=== PATIENT | male | born 1940 | race Caucasian/White ===

== ENCOUNTER 2018-03-09 12:52 | Inpatient (IN) | payer MEDICARE ==
--- NOTE | 2018-03-09 14:52 | ED ---
General Adult HPI - General Chief complaint: Abdominal Pain Stated complaint: Abdominal pain Time Seen by Provider: 03/09/18 14:29 Source: patient, family, RN notes reviewed Mode of arrival: ambulatory Limitations: no limitations - History of Present Illness Initial comments: Patient is a pleasant 77-year-old male presenting to the emergency Department with complaints of abdominal discomfort. Patient saw Dr. Sprague prior to arrival. Dr. Sprague was concern for possible abdominal mass and recommended patient come for computed tomography scan. Patient does admit to having some discomfort of his abdomen for the past week or 2. Patient does feel somewhat constipated. Patient has some chronic urinary hesitancy however this is unchanged. No fevers. Mild nausea. No vomiting. - Related Data Home Medications Medication Instructions Recorded Confirmed No Known Home Medications 03/09/18 03/09/18 Allergies Allergy/AdvReac Type Severity Reaction Status Date / Time No Known Allergies Allergy Verified 03/09/18 14:50 Review of Systems ROS Statement: Those systems with pertinent positive or pertinent negative responses have been documented in the HPI. ROS Other: All systems not noted in ROS Statement are negative. Constitutional: Denies: fever Eyes: Denies: eye pain ENT: Denies: ear pain Respiratory: Denies: cough, dyspnea Cardiovascular: Denies: chest pain Endocrine: Denies: fatigue Gastrointestinal: Reports: abdominal pain, nausea, constipation. Denies: vomiting Genitourinary: Denies: dysuria Musculoskeletal: Denies: back pain Skin: Denies: rash Neurological: Reports: headache (Patient did have a headache behind his left eye last night that has resolved. No discomfort at this time. No visual change.). Denies: weakness Past Medical History Past Medical History: No Reported History History of Any Multi-Drug Resistant Organisms: None Reported Past Surgical History: Hernia Repair Past Psychological History: No Psychological Hx Reported Smoking Status: Never smoker Past Alcohol Use History: Occasional Past Drug Use History: None Reported General Exam Limitations: no limitations General appearance: alert, in no apparent distress Head exam: Present: atraumatic, other (No tenderness over the temporal artery) Eye exam: Present: normal appearance, PERRL, EOMI. Absent: conjunctival injection, nystagmus, periorbital swelling, periorbital tenderness Expanded Eyelids: Normal Inspection: Bilateral Pupils: Regular, Round: Bilateral, Reactive: Bilateral Sclera/Conjunctival: Normal Inspection: Bilateral ENT exam: Present: normal oropharynx Neck exam: Present: normal inspection Respiratory exam: Present: normal lung sounds bilaterally Cardiovascular Exam: Present: regular rate, normal rhythm Expanded Peripheral pulses: 2+: Posterior Tibialis (R), Posterior Tibialis (L) GI/Abdominal exam: Present: soft, distended (Umbilical region with moderate sized isolated area of distention/mass that is nonpulsatile and tender with deep palpation only. No obvious umbilical hernia.), tenderness, normal bowel sounds. Absent: guarding, rebound, rigid, pulsatile mass Extremities exam: Present: normal inspection Neurological exam: Present: alert Psychiatric exam: Present: normal affect, normal mood Skin exam: Present: normal color Course Vital Signs 03/09/18 13:07 Temperature 97.8 F Pulse Rate 94 Respiratory 18 Rate Blood Pressure 205/106 O2 Sat by Pulse 97 Oximetry Medical Decision Making - Medical Decision Making Patient reevaluated. Patient and family updated. Case was discussed in detail with Dr. ye, covering for Dr. Stern, who admits for Dr. Sprague. - Lab Data Result diagrams: 03/09/18 14:57 03/09/18 14:57 Lab Results 03/09/18 03/09/18 03/09/18 Range/Units 14:50 14:57 14:57 WBC 8.9 (3.8-10.6) k/uL RBC 4.54 (4.30-5.90) m/uL Hgb 13.1 (13.0-17.5) gm/dL Hct 39.4 (39.0-53.0) % MCV 86.7 (80.0-100.0) fL MCH 28.8 (25.0-35.0) pg MCHC 33.2 (31.0-37.0) g/dL RDW 12.5 (11.5-15.5) % Plt Count 293 (150-450) k/uL Neutrophils % 75 % Lymphocytes % 16 % Monocytes % 5 % Eosinophils % 2 % Basophils % 0 % Neutrophils # 6.6 (1.3-7.7) k/uL Lymphocytes # 1.5 (1.0-4.8) k/uL Monocytes # 0.5 (0-1.0) k/uL Eosinophils # 0.2 (0-0.7) k/uL Basophils # 0.0 (0-0.2) k/uL PT (9.0-12.0) sec INR (<1.2) APTT (22.0-30.0) sec Sodium 143 (137-145) mmol/L Potassium 4.4 (3.5-5.1) mmol/L Chloride 111 H (98-107) mmol/L Carbon Dioxide 20 L (22-30) mmol/L Anion Gap 12 mmol/L BUN 57 H (9-20) mg/dL Creatinine 5.92 H (0.66-1.25) mg/dL Est GFR (CKD-EPI)AfAm 10 (>60 ml/min/1.73 sqM) Est GFR (CKD-EPI)NonAf 8 (>60 ml/min/1.73 sqM) Glucose 106 H (74-99) mg/dL Calcium 9.7 (8.4-10.2) mg/dL Total Bilirubin 0.8 (0.2-1.3) mg/dL AST 20 (17-59) U/L ALT 33 (21-72) U/L Alkaline Phosphatase 114 (38-126) U/L Total Protein 7.3 (6.3-8.2) g/dL Albumin 4.3 (3.5-5.0) g/dL Amylase 71 (30-110) U/L Lipase 72 (23-300) U/L Urine Color Light Yellow Urine Appearance Clear (Clear) Urine pH 6.0 (5.0-8.0) Ur Specific [place] 1.006 (1.001-1.035) Urine Protein Negative (Negative) Urine Glucose (UA) Negative (Negative) Urine Ketones Negative (Negative) Urine Blood Negative (Negative) Urine Nitrite Negative (Negative) Urine Bilirubin Negative (Negative) Urine Urobilinogen <2.0 (<2.0) mg/dL Ur Leukocyte Esterase Negative (Negative) 03/09/18 Range/Units 14:57 WBC (3.8-10.6) k/uL RBC (4.30-5.90) m/uL Hgb (13.0-17.5) gm/dL Hct (39.0-53.0) % MCV (80.0-100.0) fL MCH (25.0-35.0) pg MCHC (31.0-37.0) g/dL RDW (11.5-15.5) % Plt Count (150-450) k/uL Neutrophils % % Lymphocytes % % Monocytes % % Eosinophils % % Basophils % % Neutrophils # (1.3-7.7) k/uL Lymphocytes # (1.0-4.8) k/uL Monocytes # (0-1.0) k/uL Eosinophils # (0-0.7) k/uL Basophils # (0-0.2) k/uL PT 10.1 (9.0-12.0) sec INR 0.9 (<1.2) APTT 25.5 (22.0-30.0) sec Sodium (137-145) mmol/L Potassium (3.5-5.1) mmol/L Chloride (98-107) mmol/L Carbon Dioxide (22-30) mmol/L Anion Gap mmol/L BUN (9-20) mg/dL Creatinine (0.66-1.25) mg/dL Est GFR (CKD-EPI)AfAm (>60 ml/min/1.73 sqM) Est GFR (CKD-EPI)NonAf (>60 ml/min/1.73 sqM) Glucose (74-99) mg/dL Calcium (8.4-10.2) mg/dL Total Bilirubin (0.2-1.3) mg/dL AST (17-59) U/L ALT (21-72) U/L Alkaline Phosphatase (38-126) U/L Total Protein (6.3-8.2) g/dL Albumin (3.5-5.0) g/dL Amylase (30-110) U/L Lipase (23-300) U/L Urine Color Urine Appearance (Clear) Urine pH (5.0-8.0) Ur Specific [place] (1.001-1.035) Urine Protein (Negative) Urine Glucose (UA) (Negative) Urine Ketones (Negative) Urine Blood (Negative) Urine Nitrite (Negative) Urine Bilirubin (Negative) Urine Urobilinogen (<2.0) mg/dL Ur Leukocyte Esterase (Negative) - Radiology Data Radiology results: report reviewed (Computed tomography scan shows distended bladder with enlarged prostate and pelvic and retroperitoneal lymphadenopathy.) Disposition Clinical Impression: Acute renal failure (ARF) Disposition: ADMITTED IP TO THIS [facility] Is patient prescribed a controlled substance at d/c from ED?: No Referrals: Celestine,Joe, MD [Primary Care Provider] - 1-2 days Decision Time: 17:34
[2018-03-09 15:10] LABS: Basophils % (A) 0 %; Eosinophils # (A) 0.2 k/uL (0-0.7); Eosinophils % (A) 2 %; HCT 39.4 % (39.0-53.0); HGB 13.1 gm/dL (13.0-17.5); Lymphocytes # (A) 1.5 k/uL (1.0-4.8); Lymphocytes % (A) 16 %; MCH 28.8 pg (25.0-35.0); MCHC 33.2 g/dL (31.0-37.0); MCV 86.7 fL (80.0-100.0); Mean Platelet Volume 6.9; Monocytes # (A) 0.5 k/uL (0-1.0); Monocytes % (A) 5 %; Neutrophils # (A) 6.6 k/uL (1.3-7.7); Neutrophils % (A) 75 %; Platelet Count 293 k/uL (150-450); RBC 4.54 m/uL (4.30-5.90); RDW 12.5 % (11.5-15.5); WBC 8.9 k/uL (3.8-10.6)
[2018-03-09 15:12] LABS: Appearance,Urine Clear (Clear); Bilirubin,Urine Negative (Negative); Blood,Urine Negative (Negative); Color,Urine Light Yellow; Glucose,Urine (UA) Negative (Negative); Ketones,Urine Negative (Negative); Leukocyte Esterase,Urine Negative (Negative); Nitrite,Urine Negative (Negative); Protein,Urine Negative (Negative); Specific Gravity,Urine 1.006 (1.001-1.035); Urobilinogen,Urine <2.0 mg/dL (<2.0)
[2018-03-09 15:18] LABS: Albumin 4.3 g/dL (3.5-5.0); Calcium 9.7 mg/dL (8.4-10.2); Potassium 4.4 mmol/L (3.5-5.1); Total Bilirubin 0.8 mg/dL (0.2-1.3); Total Protein 7.3 g/dL (6.3-8.2)
[2018-03-09 15:20] LABS: INR 0.9 (<1.2); Partial Thromboplastin Time 25.5 sec (22.0-30.0); Prothrombin Time 10.1 sec (9.0-12.0)
--- NOTE | 2018-03-09 16:58 | CT ---
EXAMINATION TYPE: CT abdomen pelvis wo con DATE OF EXAM: 03/09/2018 COMPARISON: None HISTORY: Abdominal pain CT DLP: 482.7 mGycm Automated exposure control for dose reduction was used. TECHNIQUE: Helical acquisition of images was performed from the lung bases through the pelvis. FINDINGS: There is some coarsening of interstitial markings in the lower lobes. There is subsegmental atelectas is left lower lobe. There is no pleural effusion. Heart size is normal. Stomach appears normal. Liver shows no focal defect. Gallbladder appears normal. There is no evidence of a splenic mass. There is no evidence of pancreatic mass. Bile ducts are not dilated. There is no adrenal mass. There is moderate bilateral hydronephrosis and hydroureter. Urinary bladder is dilated. The prostate is enlarged and measures 6.5 cm. Urinary bladder measures 20 cm in length. There is no inguinal hernia. There is no free fluid in the pelvis. I see no evidence of a bowel obstr uction. There is no intestinal wall thickening. There are no dilated loops. There is no evidence of a ppendicitis. There is a 12 mm calcification posterior right kidney. I see no obstructing calculus. Th ere are multiple enlarged retroperitoneal lymph nodes. These measure up to 2 cm. I see no mesenteric adenopathy. There are enlarged pelvic lymph nodes that measure up to 1.5 cm. I see no bony destructive process. Bony pelvis is intact. Lumbar vertebra are intact. IMPRESSION: MARKEDLY ENLARGED URINARY BLADDER WITH MARKEDLY ENLARGED PROSTATE. THIS IS CONSISTENT WITH CHRONIC BL ADDER OUTLET OBSTRUCTION. MODERATE BILATERAL HYDRONEPHROSIS AND HYDROURETER. NONOBSTRUCTING RIGHT COOPER AL CALCULUS. PELVIC AND RETROPERITONEAL LYMPHADENOPATHY SUSPICIOUS FOR PROSTATE TUMOR. FOLLOW-UP IS RECOMMENDED.
[2018-03-09] MEDS ORDERED: NALOXONE 0.4 MG/ML 1 ML VIAL IV PRN (17:34)
[2018-03-09] MEDS ORDERED: hydrALAZINE HCL 20 MG/ML 1 ML VIAL IVP STA (18:11)
[2018-03-09] MEDS: SODIUM CHLORIDE 0.9% 1,000 ML IV SCH (21:43)
[2018-03-09] MEDS ORDERED: MORPHINE SULFATE 4 MG/ML SYRINGE IV STA (21:57)
[2018-03-09 22:51] VITALS: BMI 26.6
[2018-03-09] MEDS: hydrALAZINE HCL 20 MG/ML 1 ML VIAL IVP PRN (22:55)
[2018-03-10] MEDS: ACETAMINOPHEN TAB 325 MG TAB PO PRN ×2 (07:17→23:47)
[2018-03-10] MEDS: hydrALAZINE HCL 20 MG/ML 1 ML VIAL IVP PRN (07:18)
[2018-03-10 09:52] LABS: Basophils % (A) 0 %; Eosinophils # (A) 0.1 k/uL (0-0.7); Eosinophils % (A) 1 %; HCT 37.4 % (39.0-53.0); HGB 12.9 gm/dL (13.0-17.5); Lymphocytes # (A) 1.2 k/uL (1.0-4.8); Lymphocytes % (A) 11 %; MCH 29.9 pg (25.0-35.0); MCHC 34.4 g/dL (31.0-37.0); MCV 86.9 fL (80.0-100.0); Mean Platelet Volume 7.1; Monocytes # (A) 0.4 k/uL (0-1.0); Monocytes % (A) 4 %; Neutrophils # (A) 9.1 k/uL (1.3-7.7); Neutrophils % (A) 84 %; Platelet Count 304 k/uL (150-450); RBC 4.31 m/uL (4.30-5.90); RDW 12.7 % (11.5-15.5); WBC 10.9 k/uL (3.8-10.6)
[2018-03-10 10:14] LABS: Calcium 9.6 mg/dL (8.4-10.2)
--- NOTE | 2018-03-10 16:04 | P.GSCN ---
History of Present Illness Consult date: 03/10/18 History of present illness: This is a pleasant 77-year-old gentleman who first several days had been struggling to urinate. [facility] a abdominal mass that they sent him to the hospital for an abdominal CAT scan. He was identified to have urine retention with bilateral hydronephrosis. A catheters placed and 1200 mL of urine was obtained. We are asked see the patient in consultation. The patient was found to be in renal failure with a creatinine of 5.9. The patient has not had a doctor for years. So recent medical history is not obtainable. He states that he has been urinating with some difficulty for some time. He has hasn't urine stream slow urine stream incomplete voiding in frequent urination. There has been a couple episodes of urgency incontinence. There is no family history of prostate problems. Obviously has not had a PSA or prostate exam a long period of time. His abdominal pain and distention was relieved with an indwelling catheter. He feels much better. He has had some post catheter hematuria which is to be expected with decompression of the bladder and/or irritation of the prostate from the catheter. On ultrasound he does have a large prostate. The creatinine has dropped to 2.2 after 24 hours with an indwelling catheter. No PSAs been done Review of Systems All systems: negative - Genitourinary Reports as per HPI Past Medical History Past Medical History: No Reported History History of Any Multi-Drug Resistant Organisms: None Reported Past Surgical History: Hernia Repair Past Psychological History: No Psychological Hx Reported Smoking Status: Never smoker Past Alcohol Use History: Occasional Past Drug Use History: None Reported Medications and Allergies Home Medications Medication Instructions Recorded Confirmed Type No Known Home Medications 03/09/18 03/09/18 History Allergies Allergy/AdvReac Type Severity Reaction Status Date / Time No Known Allergies Allergy Verified 03/09/18 14:50 Surgical - Exam Vital Signs Temp Pulse Resp BP Pulse Ox 97.8 F 94 18 205/106 97 03/09/18 13:07 03/09/18 13:07 03/09/18 13:07 03/09/18 13:07 03/09/18 13:07 - General well developed, no distress - Eyes PERRL - ENT no hearing loss - Neck trachea midline - Respiratory normal expansion, normal respiratory effort - Cardiovascular Rhythm: irregularly irregular - Abdomen Abdomen: soft, non tender, tender - Genitourinary Noncircumcised penis. Indwelling catheter. Light pink urine. Prostate 40-50 g a regular and benign normal penis with no external lesions, testicles present - Rectum Rectum: normal sphincter tone - Integumentary no rash, no growths - Neurologic normal coordination, normal sensation - Musculoskeletal normal posture - Psychiatric oriented to time, oriented to person, oriented to place, speech is normal, memory intact Results - Labs 03/10/18 08:32 03/10/18 08:32 Abnormal Lab Results - Last 24 Hours (Table) 03/10/18 03/10/18 Range/Units 08:32 08:32 WBC 10.9 H (3.8-10.6) k/uL Hgb 12.9 L (13.0-17.5) gm/dL Hct 37.4 L (39.0-53.0) % Neutrophils # 9.1 H (1.3-7.7) k/uL Chloride 109 H (98-107) mmol/L Carbon Dioxide 21 L (22-30) mmol/L BUN 34 H (9-20) mg/dL Creatinine 2.28 H (0.66-1.25) mg/dL Glucose 145 H (74-99) mg/dL Diabetes panel 03/10/18 Range/Units 08:32 Sodium 143 (137-145) mmol/L Potassium 4.0 (3.5-5.1) mmol/L Chloride 109 H (98-107) mmol/L Carbon Dioxide 21 L (22-30) mmol/L BUN 34 H (9-20) mg/dL Creatinine 2.28 H (0.66-1.25) mg/dL Glucose 145 H (74-99) mg/dL Calcium 9.6 (8.4-10.2) mg/dL Calcium panel 03/10/18 Range/Units 08:32 Calcium 9.6 (8.4-10.2) mg/dL Pituitary panel 03/10/18 Range/Units 08:32 Sodium 143 (137-145) mmol/L Potassium 4.0 (3.5-5.1) mmol/L Chloride 109 H (98-107) mmol/L Carbon Dioxide 21 L (22-30) mmol/L BUN 34 H (9-20) mg/dL Creatinine 2.28 H (0.66-1.25) mg/dL Glucose 145 H (74-99) mg/dL Calcium 9.6 (8.4-10.2) mg/dL Adrenal panel 03/10/18 Range/Units 08:32 Sodium 143 (137-145) mmol/L Potassium 4.0 (3.5-5.1) mmol/L Chloride 109 H (98-107) mmol/L Carbon Dioxide 21 L (22-30) mmol/L BUN 34 H (9-20) mg/dL Creatinine 2.28 H (0.66-1.25) mg/dL Glucose 145 H (74-99) mg/dL Calcium 9.6 (8.4-10.2) mg/dL - Imaging CT scan - abdomen: report reviewed, image reviewed CT scan - pelvis: report reviewed, image reviewed Assessment and Plan Assessment: Impression: Acute urine retention. Chronic BPH. Bilateral hydronephrosis with secondary renal insufficiency, acute. Recommendations: Indwelling catheter is appropriate and should remain in place for the short term. I will add tamsulosin for a voiding trial in the near future. He'll need a PSA in the future but I will wait a few days until the irritation from the catheter placement and bladder decompression settle down. I will follow this patient with you
[2018-03-10] MEDS: SODIUM CHLORIDE 0.9% 1,000 ML IV SCH (16:38)
--- NOTE | 2018-03-10 21:18 | P.HPIM ---
History of Present Illness this a pleasant 77 yo M with no significant pmh who presents with acute renal faillure and obstructive uropathy . he went to urgent care because he was complaining from his left eye, physician at urgent care noticed he was complaining from abd discomfort in the lower abd and during his examination he suspected some kind of mass in the lower abd and advised him to come to emergency room , where he found to have distended urinary bladder with CT scan of abdomen showing markedly enlarged urinary bladder and markadly enlarged prostate gland, with moderate bilateral hydronephrosis and hydroureter conley catheter was inserted and pt start feeling better. Review of Systems CONSTITUTIONAL: No fever, no malaise, no fatigue. HEENT: No recent visual problems or hearing problems. Denied any sore throat. CARDIOVASCULAR: No orthopnea, PND, no palpitations, no syncope. PULMONARY: No shortness of breath, no cough, no hemoptysis. GASTROINTESTINAL: No diarrhea, no nausea, no vomiting, no abdominal pain. Normoactive bowel sounds. NEUROLOGICAL: No headaches, no weakness, no numbness. HEMATOLOGICAL: Denies any bleeding or petechiae. GENITOURINARY: Denies any burning micturition, frequency, or urgency. MUSCULOSKELETAL/RHEUMATOLOGICAL: Denies any joint pain, swelling, or any muscle pain. ENDOCRINE: Denies any polyuria or polydipsia. Past Medical History Past Medical History: No Reported History History of Any Multi-Drug Resistant Organisms: None Reported Past Surgical History: Hernia Repair Past Psychological History: No Psychological Hx Reported Smoking Status: Never smoker Past Alcohol Use History: Occasional Past Drug Use History: None Reported Medications and Allergies Home Medications Medication Instructions Recorded Confirmed Type No Known Home Medications 03/09/18 03/09/18 History Allergies Allergy/AdvReac Type Severity Reaction Status Date / Time No Known Allergies Allergy Verified 03/09/18 14:50 Physical Exam Vitals: Vital Signs Temp Pulse Pulse Pulse Resp BP BP 03/10/18 08:58 122/70 03/10/18 07:08 97.8 F 108 H 18 154/84 03/10/18 00:17 98.2 F 107 H 16 139/67 03/10/18 00:00 109 H 160/71 03/09/18 23:06 98.0 F 108 H 93 16 186/94 03/09/18 22:12 98.0 F 97 18 150/90 03/09/18 20:36 102 H 146/90 03/09/18 20:00 155/96 03/09/18 19:50 155/96 03/09/18 19:40 158/92 03/09/18 19:35 97 16 158/92 03/09/18 19:30 177/98 03/09/18 19:20 177/98 03/09/18 19:10 160/125 03/09/18 18:50 180/116 03/09/18 18:40 105 H 17 177/120 03/09/18 18:10 103 H 18 190/118 03/09/18 13:07 97.8 F 94 18 205/106 Pulse Ox 03/10/18 08:58 03/10/18 07:08 93 L 03/10/18 00:17 93 L 03/10/18 00:00 03/09/18 23:06 03/09/18 22:12 97 03/09/18 20:36 97 03/09/18 20:00 94 L 03/09/18 19:50 94 L 03/09/18 19:40 94 L 03/09/18 19:35 97 03/09/18 19:30 95 03/09/18 19:20 97 03/09/18 19:10 95 03/09/18 18:50 96 03/09/18 18:40 95 03/09/18 18:10 93 L 03/09/18 13:07 97 Intake and Output 03/09/18 03/10/18 03/10/18 22:59 06:59 14:59 Intake Total 375 Output Total 2350 1400 Balance -2350 -1025 Intake: Intake, IV Titration 375 Amount Sodium Chloride 0.9% 1, 375 000 ml @ 75 mls/hr IV . [id number] [facility] Rx#:[id number] Output: Urine 2350 1400 Uretheral (Con[place]) 1250 800 Other: Voiding Method Indwelling Catheter Indwelling Catheter Weight 77.111 kg GENERAL: The patient is alert and oriented x3, not in any acute distress. Well developed, well nourished. HEENT: Pupils are round and equally reacting to light. EOMI. No scleral icterus. No conjunctival pallor. Normocephalic, atraumatic. No pharyngeal erythema. No thyromegaly. CARDIOVASCULAR: S1 and S2 present. No murmurs, rubs, or gallops. PULMONARY: Chest is clear to auscultation, no wheezing or crackles. ABDOMEN: Soft, nontender, nondistended, normoactive bowel sounds. No palpable organomegaly. MUSCULOSKELETAL: No joint swelling or deformity. EXTREMITIES: No cyanosis, clubbing, or pedal edema. NEUROLOGICAL: Gross neurological examination did not reveal any focal deficits. SKIN: No rashes. Results CBC & Chem 7: 03/10/18 08:32 03/10/18 08:32 Labs: Abnormal Lab Results - Last 24 Hours (Table) 03/09/18 03/10/18 03/10/18 Range/Units 14:57 08:32 08:32 WBC 10.9 H (3.8-10.6) k/uL Hgb 12.9 L (13.0-17.5) gm/dL Hct 37.4 L (39.0-53.0) % Neutrophils # 9.1 H (1.3-7.7) k/uL Chloride 111 H 109 H (98-107) mmol/L Carbon Dioxide 20 L 21 L (22-30) mmol/L BUN 57 H 34 H (9-20) mg/dL Creatinine 5.92 H 2.28 H (0.66-1.25) mg/dL Glucose 106 H 145 H (74-99) mg/dL Thrombosis Risk Factor Assmnt - Choose All That Apply Any of the Below Risk Factors Present?: No Other Risk Factors: Yes Each Risk Factor Represents 3 Points: Age 75 years or older Other congenital or acquired thrombophilia - If yes, enter type in comment: No Thrombosis Risk Factor Assessment Total Risk Factor Score: 3 Thrombosis Risk Factor Assessment Level: Moderate Risk Assessment and Plan Assessment: acute renal failure acute urinary retention moderate Bilateral hydronephrosis dilated urinary bladder dehydration Plan: this is a pleasant 77 yo M who presents with acute renal failure , c/w iv fluids , nephrology and urology consult Labs and medication were reviewed.. Continue same treatment. Continue with symptomatic treatment. Resume home medication. Monitor lytes and vitals. DVT and GI prophylaxis. Further recommendations of the clinical course of the patient DVT prophylaxis: Subcutaneous heparin GI Prophylaxis: Pepcid PT/OT: Pending Prognosis is guarded
--- NOTE | 2018-03-10 23:22 | CONS ---
CONSULTATION REASON FOR CONSULT: Renal failure. HISTORY OF PRESENT ILLNESS: Patient is a 77-year-old male who was admitted to the hospital with complaints of weakness and abdominal pain. Patient noticed he had been voiding less and had some difficulty in passing urine. The patient states he has not seen a physician for about 30 years and he is currently not on any medications. CT scan was done in the ER, which showed bilateral hydronephrosis and enlarged prostate. There was also a nonobstructive right renal calculus seen. The patient currently has a Marte catheter and he has had good urine output. Total output documented at 3.7 L. Serum creatinine was 5.9 on initial admission. It is now down to 2.28. We do not have any previous labs available for comparison. PAST MEDICAL HISTORY: None. PAST SURGICAL HISTORY: Hernia repairs. SOCIAL HISTORY: Negative for smoking, drug abuse or alcohol abuse. MEDICATIONS: None. REVIEW OF SYSTEMS: As per HPI. Other systems negative. EXAMINATION: Patient is currently comfortable, awake, alert, oriented x3, not in any acute distress. The patient was seen this morning. Blood pressure was 122/70, heart rate of 82 per minute. He is afebrile. Examination of the heart S1, S2. Examination of the lungs bilateral breath sounds are heard. Abdomen is soft, nontender. Examination of lower extremities shows no evidence of edema. SUPERVISOR PLEATING exam is grossly intact. LAB: Show sodium 143, potassium 4.0, chloride 109, BUN 34, serum creatinine 2.28, hemoglobin 12.9 g/dL. UA is completely benign with no evidence of blood or protein. ASSESSMENT: 1. Acute kidney injury secondary to obstructive uropathy with enlarged prostate and bilateral hydronephrosis, currently improving with indwelling Marte catheter placement. Urology has been consulted. 2. Rule out chronic kidney disease. 3. Abdominal pain secondary to urinary bladder distention and urinary obstruction. 4. Enlarged prostate to follow up with Urology as outpatient. PSA will be ordered as well. PLAN: Continue with IV fluids. Repeat labs in a.m. Thank you for this consultation. We will continue to follow the patient with you during his hospitalization. MMODL / IJN: [id number] /
[2018-03-11] MEDS: hydrALAZINE HCL 20 MG/ML 1 ML VIAL IVP PRN (00:09)
[2018-03-11] MEDS: SODIUM CHLORIDE 0.9% 1,000 ML IV SCH ×2 (00:58→18:17)
[2018-03-11 07:40] LABS: Basophils % (A) 0 %; Eosinophils # (A) 0.3 k/uL (0-0.7); Eosinophils % (A) 3 %; HCT 36.9 % (39.0-53.0); HGB 12.4 gm/dL (13.0-17.5); Lymphocytes % (A) 22 %; MCH 29.2 pg (25.0-35.0); MCHC 33.5 g/dL (31.0-37.0); MCV 87.2 fL (80.0-100.0); Mean Platelet Volume 6.8; Monocytes # (A) 0.5 k/uL (0-1.0); Monocytes % (A) 6 %; Neutrophils # (A) 6.2 k/uL (1.3-7.7); Neutrophils % (A) 68 %; Platelet Count 285 k/uL (150-450); RBC 4.23 m/uL (4.30-5.90); RDW 12.9 % (11.5-15.5); WBC 9.2 k/uL (3.8-10.6)
[2018-03-11 07:53] LABS: Calcium 9.1 mg/dL (8.4-10.2); Potassium 3.9 mmol/L (3.5-5.1)
--- NOTE | 2018-03-11 09:03 | P.PN ---
Subjective Progress Note Date: 03/11/18 The patient's creatinine is come down to 1.4 from 5.9. This is consistent with acute renal failure due to urine retention. He'll be started on the Flomax. We 'll pull his catheter as an outpatient and see if the Flomax will be adequate to help him with voiding. If not he may need a TURP in the future. Objective - Vital Signs Vital signs: Vital Signs Temp 98.9 F 03/11/18 07:40 Pulse 87 03/11/18 07:40 Resp 16 03/11/18 07:40 BP 144/80 03/11/18 07:40 Pulse Ox 95 03/11/18 07:40 Intake & Output 03/10/18 03/11/18 03/11/18 18:59 06:59 18:59 Intake Total 600 675 Output Total 1000 Balance -400 675 Intake: Intake, IV Titration 600 675 Amount Sodium Chloride 0.9% 1, 600 675 000 ml @ 75 mls/hr IV . [id number] [facility] Rx#:[id number] Output: Urine 1000 Other: Voiding Method Indwelling Catheter Indwelling Catheter Indwelling Catheter - Labs CBC & Chem 7: 03/11/18 07:07 03/11/18 07:07 Labs: Abnormal Lab Results - Last 24 Hours (Table) 03/10/18 03/10/18 03/11/18 Range/Units 08:32 08:32 07:07 WBC 10.9 H (3.8-10.6) k/uL RBC (4.30-5.90) m/uL Hgb 12.9 L (13.0-17.5) gm/dL Hct 37.4 L (39.0-53.0) % Neutrophils # 9.1 H (1.3-7.7) k/uL Chloride 109 H 112 H (98-107) mmol/L Carbon Dioxide 21 L (22-30) mmol/L BUN 34 H 23 H (9-20) mg/dL Creatinine 2.28 H 1.49 H (0.66-1.25) mg/dL Glucose 145 H (74-99) mg/dL 03/11/18 Range/Units 07:07 WBC (3.8-10.6) k/uL RBC 4.23 L (4.30-5.90) m/uL Hgb 12.4 L (13.0-17.5) gm/dL Hct 36.9 L (39.0-53.0) % Neutrophils # (1.3-7.7) k/uL Chloride (98-107) mmol/L Carbon Dioxide (22-30) mmol/L BUN (9-20) mg/dL Creatinine (0.66-1.25) mg/dL Glucose (74-99) mg/dL
--- NOTE | 2018-03-11 10:47 | P.PN ---
Subjective this a pleasant 77 yo M with no significant pmh who presents with acute renal faillure and obstructive uropathy . he went to urgent care because he was complaining from his left eye, physician at urgent care noticed he was complaining from abd discomfort in the lower abd and during his examination he suspected some kind of mass in the lower abd and advised him to come to emergency room , where he found to have distended urinary bladder with CT scan of abdomen showing markedly enlarged urinary bladder and markadly enlarged prostate gland, with moderate bilateral hydronephrosis and hydroureter conley catheter was inserted and pt start feeling better. 03/11/2018 Patient today's feels better. With no chest pain dyspnea. No abdominal pain. No change in bowel habits. Vitas looks stable. Leukocytosis resolved. And his creatinine is trending down from 2.2 down to 1.49. Neurology follow-up is appreciated, they recommended and possible TURP to be considered in the future. Nephrology Objective - Vital Signs Vital signs: Vital Signs Temp 98.9 F 03/11/18 07:40 Pulse 87 03/11/18 07:40 Resp 16 03/11/18 07:40 BP 144/80 03/11/18 07:40 Pulse Ox 95 03/11/18 07:40 Intake & Output 03/10/18 03/11/18 03/11/18 18:59 06:59 18:59 Intake Total 600 675 Output Total 1000 Balance -400 675 Intake: Intake, IV Titration 600 675 Amount Sodium Chloride 0.9% 1, 600 675 000 ml @ 75 mls/hr IV . [id number] [facility] Rx#:[id number] Output: Urine 1000 Other: Voiding Method Indwelling Catheter Indwelling Catheter Indwelling Catheter - Exam GENERAL: The patient is alert and oriented x3, not in any acute distress. Well developed, well nourished. HEENT: Pupils are round and equally reacting to light. EOMI. No scleral icterus. No conjunctival pallor. Normocephalic, atraumatic. No pharyngeal erythema. No thyromegaly. CARDIOVASCULAR: S1 and S2 present. No murmurs, rubs, or gallops. PULMONARY: Chest is clear to auscultation, no wheezing or crackles. ABDOMEN: Soft, nontender, nondistended, normoactive bowel sounds. No palpable organomegaly. MUSCULOSKELETAL: No joint swelling or deformity. EXTREMITIES: No cyanosis, clubbing, or pedal edema. NEUROLOGICAL: Gross neurological examination did not reveal any focal deficits. SKIN: No rashes. - Labs CBC & Chem 7: 03/11/18 07:07 03/11/18 07:07 Labs: Abnormal Lab Results - Last 24 Hours (Table) 03/11/18 03/11/18 Range/Units 07:07 07:07 RBC 4.23 L (4.30-5.90) m/uL Hgb 12.4 L (13.0-17.5) gm/dL Hct 36.9 L (39.0-53.0) % Chloride 112 H (98-107) mmol/L BUN 23 H (9-20) mg/dL Creatinine 1.49 H (0.66-1.25) mg/dL Assessment and Plan Assessment: acute renal failure acute urinary retention moderate Bilateral hydronephrosis dilated urinary bladder dehydration Plan: this is a pleasant 77 yo M who presents with acute renal failure , c/w iv fluids , nephrology and urology consult Labs and medication were reviewed.. Continue same treatment. Continue with symptomatic treatment. Resume home medication. Monitor lytes and vitals. DVT and GI prophylaxis. Further recommendations of the clinical course of the patient DVT prophylaxis: Subcutaneous heparin GI Prophylaxis: Pepcid PT/OT: Pending Prognosis is guarded
[2018-03-11] MEDS: TAMSULOSIN 0.4 MG CAP.ER.24H PO SCH (18:17)
--- NOTE | 2018-03-11 22:23 | PN ---
PROGRESS NOTE HISTORY: The patient is seen for followup for acute kidney injury which was mainly obstructive uropathy. The patient has a Marte catheter with good urine output. His creatinine is down from 5.9 to 1.49 today. The patient denies any significant complaints. PHYSICAL EXAMINATION: Blood pressure was 144/80, heart rate 87 per minute this morning. Examination of the heart S1, S2. Examination of lungs, bilateral breath sounds are heard. Abdomen is soft, nontender. Exam of lower extremities shows no significant edema. INFORMATION RESOURCES MANAGER exam is grossly intact. LABS: Serum creatinine down to 1.49. Sodium 142, potassium 3.9, BUN 23, hemoglobin 12.4 g/dL. UA is benign. ASSESSMENT: 1. Acute kidney injury, mainly obstructive uropathy with bilateral hydronephrosis on ultrasound, currently with indwelling Marte catheter with significant improvement in renal function. The patient is maintained on Flomax. He will follow up as outpatient with Urology. 2. Abdominal pain secondary to severe urinary retention, currently improved. PLAN: Decrease IV fluids. Possible discharge. The patient could possibly be discharged tomorrow and follow up as outpatient with Urology. MMODL / IJN: [id number] /
[2018-03-12 07:44] LABS: Calcium 8.7 mg/dL (8.4-10.2); Potassium 3.8 mmol/L (3.5-5.1)
[2018-03-12] MEDS: SODIUM CHLORIDE 0.9% 1,000 ML IV SCH (08:35)
[2018-03-12 19:44] VITALS: TEMP 99
[2018-03-12] MEDS: TAMSULOSIN 0.4 MG CAP.ER.24H PO SCH (20:17)
--- NOTE | 2018-03-12 23:54 | PN ---
PROGRESS NOTE HISTORY: Patient is seen for followup for acute kidney injury which was mainly obstructive uropathy. Renal function has improved significantly. Serum creatinine is down to 1.18. The patient has an indwelling Marte catheter. He has had good urine output. PHYSICAL EXAMINATION: This afternoon, blood pressure was 151/82, heart rate 94 per minute. He is afebrile. Examination of the heart S1, S2. Examination of lungs, bilateral breath sounds are heard. Abdomen is soft, nontender. Examination of lower extremity shows no evidence of edema. SECOND CHEF exam is grossly intact. LABS: Sodium 141, potassium 3.8, BUN 17, serum creatinine 1.18. ASSESSMENT: 1. Acute kidney injury, obstructive uropathy associated with enlarged prostate and bilateral hydronephrosis, currently significantly improved, with serum creatinine down from 5.9 to 1.18 mg/dL now. Continue with indwelling Marte catheter and follow up as outpatient with Urology. 2. Benign prostatic hypertrophy, maintained on Flomax. Follow up with Urology. PLAN: Discontinue IV fluids. Encourage increased oral intake. The patient is stable for discharge from Nephrology standpoint. MMODL / IJN: [id number] /
[2018-03-13 00:25] LABS: Glucose,Whole Blood 135 mg/dL (75-99)
--- NOTE | 2018-03-13 00:31 | CT ---
EXAMINATION TYPE: CODE STROKE: CT brain wo contr DATE OF EXAM: 03/13/2018 COMPARISON: None HISTORY: r/o stroke CT DLP: 2300 mGycm Automated exposure control for dose reduction was used. FINDINGS: Exam limited slightly by motion. There is cerebral cortical atrophy. There is no mass effect nor midl ine shift. There is no sign of intracranial hemorrhage. Calvarium is intact. IMPRESSION: Cerebral atrophy. No acute intracranial abnormality. Limited exam.
--- NOTE | 2018-03-13 00:44 | CT ---
EXAMINATION TYPE: CT angio head neck DATE OF EXAM: 03/13/2018 HISTORY: stroke COMPARISON: None CT DLP: 492.3 mGycm. Automated Exposure Control for Dose Reduction was Utilized. TECHNIQUE: CTA scan of the neck is performed with IV Contrast, patient injected with 65 mL of Isovue 370, axial images are obtained, coronal and sagittal reformatted images are reviewed. Three-D recons tructed images are created on an independent workstation and reviewed. FINDINGS: There is normal branching pattern of the great vessels on the aortic arch. There is bilateral patency of the subclavian arteries. There is arterial flow in both vertebral arteries. Left vertebral artery slightly larger than the right.. There is arterial flow in the common internal and external carotid arteries bilaterally. There is wide patency of the carotid artery bifurcations. There is minimal plaq ue at the left carotid artery bifurcation. There is no evidence of vertebral or carotid artery aneurysm or dissection. There is arterial flow in both internal carotid arteries at the skull base. Is arterial flow in the v ertebrobasilar artery system. There is arterial flow in the anterior middle and posterior cerebral arteries. There is abrupt termin ation of the proximal right middle cerebral artery. There is no mass effect. There is no evidence of aneurysm or neovascularity. I see no evidence of intracranial arterial stenosis. There is normal contrast opacification of the venous sinuses. IMPRESSION: Negative CT angiogram of the neck. No evidence of stenosis or dissection. 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
[2018-03-13 00:49] LABS: Basophils % (A) 0 %; Eosinophils # (A) 0.3 k/uL (0-0.7); Eosinophils % (A) 3 %; HGB 12.9 gm/dL (13.0-17.5); Lymphocytes # (A) 1.4 k/uL (1.0-4.8); Lymphocytes % (A) 13 %; MCH 29.7 pg (25.0-35.0); MCV 87.3 fL (80.0-100.0); Monocytes # (A) 0.4 k/uL (0-1.0); Monocytes % (A) 4 %; Neutrophils % (A) 80 %; Platelet Count 276 k/uL (150-450); RBC 4.36 m/uL (4.30-5.90); RDW 12.7 % (11.5-15.5); WBC 11.3 k/uL (3.8-10.6)
[2018-03-13] MEDS ORDERED: tPA (Alteplase) PER PHARMACY 1 EACH MISC MISCELLANE PRN (00:49)
[2018-03-13] MEDS ORDERED: ALTEPLASE 63 MG in EMPTY BAG 1 BAG IV STA (00:55)
[2018-03-13] MEDS ORDERED: ALTEPLASE BOLUS 7 MG in EMPTY SYRINGE 1 SYR IV STA (00:55)
[2018-03-13 01:09] LABS: Partial Thromboplastin Time 26.1 sec (22.0-30.0); Prothrombin Time 10.3 sec (9.0-12.0)
[2018-03-13] MEDS ORDERED: LABETALOL 5 MG/ML VIAL MDV IVP SCH (01:15)
[2018-03-13 01:17] VITALS: RESP 18
[2018-03-13 01:17] LABS: Albumin 3.7 g/dL (3.5-5.0); Potassium 3.7 mmol/L (3.5-5.1); Total Bilirubin 0.6 mg/dL (0.2-1.3); Total Protein 6.6 g/dL (6.3-8.2)
[2018-03-13 01:21] VITALS: BP 157/107; PULSE 110
--- NOTE | 2018-03-14 08:05 | PN ---
PROGRESS NOTE DATE OF SERVICE: 03/12/2018 PRESENTING COMPLAINT: Urinary retention. INTERVAL HISTORY: This patient was seen by me on March 12, 2018. The patient presented with acute renal failure from BPH, has a Marte catheter. Creatinine is coming down. I saw the patient in late afternoon. Overall feeling better. The patient is concerned about having a bowel movement and wanted to go home the following day and I said okay. His is at the bedside. Marte catheter has to remain in as per Urology. REVIEW OF SYSTEMS: Done for constitutional, cardiovascular, GI, pulmonary; relevant findings as above. Patient has otherwise been tolerating a diet. Has been out of bed. CURRENT MEDICATIONS: Reviewed. EXAMINATION: VITAL SIGNS: Temp 97.6, pulse 94, respiration 17, blood pressure 120/82, pulse ox 93 percent on room air. GENERAL APPEARANCE: Lying in bed comfortable. EYES: Pupils equal, conjunctivae normal. NECK: JVD not raised. Mass not palpable. RESPIRATORY: Effort, lungs fair entry. CARDIOVASCULAR: 1st and 2nd sounds, no edema. ABDOMEN: Soft, nontender. Liver and spleen not palpable. Marte catheter in place. PSYCHIATRY: Alert and oriented x3. Mood and affect normal. INVESTIGATIONS: Potassium 3.8, BUN 17, creatinine 1.18. ASSESSMENT: 1. Acute renal failure prerenal secondary to obstructive uropathy from benign prostatic hypertrophy. 2. Severe benign prostatic hypertrophy causing urinary outflow obstruction. Now Marte catheter in place. 3. Normocytic anemia cause undetermined. 4. Constipation could be from urinary retention. PLAN: Told the patient and the . Discussed that we will keep the patient overnight. Let him go tomorrow. Hopefully, patient will have a bowel movement. If not, the patient will need an enema. MMODL / IJN: [id number] /
--- NOTE | 2018-03-15 00:05 | DS ---
DISCHARGE SUMMARY DATE OF ADMISSION: 03/09/2018 DATE OF DISCHARGE: 03/13/2018 FINAL DIAGNOSES: 1. Acute renal failure, prerenal secondary to obstructive uropathy from benign prostatic hypertrophy. 2. Severe benign prostatic hypertrophy causing urinary outflow obstruction, Marte catheter in place. 3. Normocytic anemia, cause undetermined. 4. Constipation probably from urinary retention. 5. 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 HOSPITAL COURSE: This patient presented with acute renal failure and obstructive uropathy. He was having abdominal discomfort. The patient is found to have a distended urinary bladder and Marte catheter was placed. CT scan did confirm a markedly enlarged prostate with bilateral hydronephrosis and hydroureter. Marte catheter was placed. The patient's creatinine was 5.92. The creatinine did come down to 1.09. Marte catheter was also placed and was to be kept in by Dr. Bunn. I saw the patient on the evening of the around midnight. The nurse found the patient's left side to be flaccid, facial asymmetry, garbled speech. Code stroke was called out. CT scan of the brain was unremarkable without contrast. 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 The patient was transferred urgently to [facility] and was picked up at 1:30 am by [facility]. DISPOSITION: [facility]. Transferred by [facility]. CONSULTATIONS: Dr. Coyne from Nephrology and Dr. Bunn from Urology. MMODL / IJN: [id number] /
== END 2018-03-13 01:30 | disposition short-term general hospital (02) | DRG 682 ==
LOC: EC 12:52 → 4SSUR 22:10
PROVIDERS: ADMIT Hospitalist; ATTEND Hospitalist
DX: N17.9 Acute kidney failure, unspecified (principal); I63.311 Cerebral infarction due to thrombosis of right middle cerebral artery; N13.8 Other obstructive and reflux uropathy; D64.9 Anemia, unspecified; D72.829 Elevated white blood cell count, unspecified; N13.2 Hydronephrosis with renal and ureteral calculous obstruction; N40.1 Benign prostatic hyperplasia with lower urinary tract symptoms; K59.00 Constipation, unspecified; E86.0 Dehydration; N39.41 Urge incontinence; R33.8 Other retention of urine; R47.89 Other speech disturbances; R29.810 Facial weakness
CPT/HCPCS: 36415; 51702; 70450; 70496; 70498; 74176; 80048; 80053; 81003; 82150; 83036; 83690; 84484; 85025; 85610; 85730; 93005; 96374; 96375; 99285

== ENCOUNTER → 2018-05-26 | Outpatient (CLI) | payer MEDICARE ==
[2018-05-26 16:41] LABS: Basophils % (A) 0 %; Eosinophils # (A) 0.3 k/uL (0-0.7); Eosinophils % (A) 4 %; HCT 43.5 % (39.0-53.0); HGB 14.5 gm/dL (13.0-17.5); Lymphocytes # (A) 1.9 k/uL (1.0-4.8); Lymphocytes % (A) 22 %; MCH 30.2 pg (25.0-35.0); MCHC 33.3 g/dL (31.0-37.0); MCV 90.8 fL (80.0-100.0); Mean Platelet Volume 7.2; Monocytes # (A) 0.4 k/uL (0-1.0); Monocytes % (A) 4 %; Neutrophils # (A) 5.8 k/uL (1.3-7.7); Neutrophils % (A) 68 %; Platelet Count 281 k/uL (150-450); RBC 4.79 m/uL (4.30-5.90); RDW 13.6 % (11.5-15.5); WBC 8.5 k/uL (3.8-10.6)
[2018-05-26 16:47] LABS: Appearance,Urine Cloudy (Clear); Bacteria,Urine Rare /hpf; Bilirubin,Urine Negative (Negative); Blood,Urine Moderate (Negative); Budding Yeast,Urine Rare /hpf; Color,Urine Yellow; Glucose,Urine (UA) Negative (Negative); Ketones,Urine Negative (Negative); Leukocyte Esterase,Urine Large (Negative); Mucus,Urine Many /hpf; Nitrite,Urine Positive (Negative); PH, Urine 5.5 (5.0-8.0); Protein,Urine 2+ (Negative); RBC,Urine >182 /hpf (0-5); Specific Gravity,Urine 1.018 (1.001-1.035); Squamous Epithelial Cell,Urine 1 /hpf (0-4); Urobilinogen,Urine <2.0 mg/dL (<2.0); WBC,Urine >182 /hpf (0-5)
[2018-05-26 16:53] LABS: Anion Gap 11 mmol/L; Blood Urea Nitrogen 19 mg/dL (9-20); Calcium 10.4 mg/dL (8.4-10.2); Carbon Dioxide 23 mmol/L (22-30); Chloride 106 mmol/L (98-107); Glucose 108 mg/dL (74-99); Potassium 4.5 mmol/L (3.5-5.1); Sodium 140 mmol/L (137-145)
== END ==
LOC: LABPAT 14:28
PROVIDERS: ATTEND Urology
DX: Z01.818 Encounter for other preprocedural examination (principal); Z01.812 Encounter for preprocedural laboratory examination; I10 Essential (primary) hypertension; N40.1 Benign prostatic hyperplasia with lower urinary tract symptoms; R33.9 Retention of urine, unspecified
CPT/HCPCS: 80048; 81001; 85025; 87086; 93005

== ENCOUNTER 2018-06-03 07:28 | Day surgery (SDC) | payer MEDICARE ==
--- NOTE | 2018-06-02 15:15 | P.GSHP ---
History of Present Illness H&P Date: 06/02/18 78 yo in retention since february He has had cardiac issues precluding turp He has failed consertive treatment to liberate him from retention He comes for a turp He has been cleared by his workers' compensation hearings officer The risks and complications have been discussed. - Constitutional Constitutional: Denies chills, Denies fever - EENT Eyes: denies blurred vision, denies pain Ears, nose, mouth and throat: Denies headache, Denies sore throat - Cardiovascular Cardiovascular: Denies chest pain, Denies shortness of breath - Respiratory Respiratory: Denies cough, Denies 7 - Gastrointestinal Gastrointestinal: Denies abdominal pain, Denies diarrhea, Denies nausea, Denies vomiting - Genitourinary (Female) Genitourinary: Denies dysuria, Denies hematuria - Genitourinary (Male) Genitourinary: Denies dysuria, Denies hematuria - Musculoskeletal Musculoskeletal: Denies myalgias - Integumentary Integumentary: Denies pruritus, Denies rash - Neurological Neurological: Denies numbness, Denies weakness - Psychiatric Psychiatric: Denies anxiety, Denies depression - Endocrine Endocrine: Denies fatigue, Denies weight change Past Medical History Past Medical History: Coronary Artery Disease (CAD), CVA/TIA, Hyperlipidemia, Prostate Disorder Additional Past Medical History / Comment(s): 03/12/18 experienced CVA- lt arm can't move has sling, lt leg starting to move awaiting brace for ankle/foot. states pt has [employer] director medical writing "my patient monitor" with chip in chest under skin and separate device to monitor heart, hx kidney stone. has conley catheter in place History of Any Multi-Drug Resistant Organisms: None Reported Past Surgical History: Hernia Repair Additional Past Surgical History / Comment(s): reattachment lt thumb Past Anesthesia/Blood Transfusion Reactions: No Reported Reaction Smoking Status: Never smoker - Past Family History Father Additional Family Medical History / Comment(s): bypass surgery Brother(s) Family Medical History: Cancer Medications and Allergies Home Medications Medication Instructions Recorded Confirmed Type Acetaminophen Tab [Tylenol Tab] 325 mg PO DAILY PRN 05/26/18 05/26/18 History Aspirin 325 mg PO DAILY 05/26/18 05/26/18 History Atorvastatin [Lipitor] 80 mg PO HS 05/26/18 05/26/18 History Bethanechol [Urecholine] 25 mg PO QID 05/26/18 05/26/18 History Carvedilol [Coreg] 3.125 mg PO BID 05/26/18 05/26/18 History Finasteride [Proscar] 5 mg PO DAILY 05/26/18 05/26/18 History Lactulose [Constulose] 10 gm PO HS 05/26/18 05/26/18 History Multivitamins, Thera [Multivitamin 1 tab PO DAILY 05/26/18 05/26/18 History (formulary)] Tamsulosin HCl [Flomax] 0.4 mg PO DAILY 05/26/18 05/26/18 History Allergies Allergy/AdvReac Type Severity Reaction Status Date / Time No Known Allergies Allergy Verified 05/26/18 09:32 Surgical - Exam - General well developed, well nourished - Eyes PERRL - ENT no hearing loss - Respiratory normal expansion, normal respiratory effort - Cardiovascular Rhythm: irregularly irregular - Abdomen Abdomen: soft, non tender - Genitourinary indwelling catheter 30 gm benign prostate - Integumentary no rash, no growths - Musculoskeletal normal posture - Psychiatric oriented to time, oriented to person, oriented to place, speech is normal, memory intact Assessment and Plan Assessment: Impression: Urine retention secondary to bph Plan Bipolar turp
[~2018-06-03 07:28] MED LIST: AMPICILLIN 1,000 MG in SODIUM CHLORIDE 0.9% 50 ML IVPB ONE; GENTAMICIN 100 MG in SODIUM CHLORIDE 0.9% 100 ML IVPB ONE; HYDROmorphone 0.5 MG/0.5 ML SYRINGE IVP PRN; MIDAZOLAM 2 MG/2 ML VIAL IV PRN; ONDANSETRON 4 MG/2 ML VIAL IVP ONE
[2018-06-03] MEDS: LACTATED RINGERS 1,000 ML IV SCH ×2 (08:29→08:34)
[2018-06-03] MEDS ORDERED: LIDOCAINE 1% 20 ML VIAL (10MG/ML) FOR IV START INTRADERMA ONE (08:30)
[2018-06-03] MEDS: DEXAMETHASONE SOD PHOSPHATE 10 MG/ML 1 ML VIAL IV ONE ×2 (08:31→11:50)
[2018-06-03] MEDS ORDERED: LIDOCAINE 1% INJ 10MG/ML (20 ML MDV) ONE (08:36)
[2018-06-03] MEDS ORDERED: PROPOFOL 10 MG/ML 20 ML VIAL IV ONE (08:36)
[2018-06-03] MEDS ORDERED: ePHEDrine SULFATE/0.9% NACL/PF 50 MG/5 ML SYRINGE IV ONE (08:36)
[2018-06-03] MEDS ORDERED: ROCURONIUM BROMIDE 10 MG/ML 10 ML VIAL IV ONE (08:36)
[2018-06-03] MEDS ORDERED: HYDROmorphone (PF) 1 MG/ML ONE (08:36)
[2018-06-03] MEDS ORDERED: MIDAZOLAM 2 MG/2 ML VIAL ONE (08:36)
[2018-06-03] MEDS ORDERED: fentaNYL (PF) 50 MCG/ML 2 ML AMP ONE (08:36)
[2018-06-03] MEDS ORDERED: ACETAMINOPHEN TAB 325 MG TAB PO PRN ×2 (09:50→09:51)
[2018-06-03] MEDS ORDERED: BELLADONNA-OPIUM 16.2-60 MG 1 EACH SUPP RECTAL PRN (09:51)
[2018-06-03] MEDS ORDERED: LEVOFLOXACIN 500 MG TAB PO STA (09:56)
--- NOTE | 2018-06-03 09:56 | P.OP ---
Date of Procedure: 06/03/18 Preoperative Diagnosis: Urine retention secondary to BPH Postoperative Diagnosis: Same Procedure(s) Performed: Bipolar TURP Anesthesia: KHANH Surgeon: Clay Bunn Estimated Blood Loss (ml): 50 Pathology: other (Prostate) Condition: stable Disposition: PACU Indications for Procedure: The patient is 78. He has been in urinary retention since Josie. He is failed conservative management he comes for a TURP. He can cleared by his wheel and caster repairer risks and complications including persistent retention and incontinence have been outlined Description of Procedure: Patient is brought to the operating suite. He is given a successful general endotracheal anesthesia. He's placed lithotomy position with a sterile prep and drape. Under direct vision the obturator and 25-Japanese sheath and Foroblique lenses introduced in urethra is normal prostatic urethra shows trilobar obstruction with a prominent intravesical middle lobe and severe trabeculation of the bladder. With the Look[employer]er resectoscope and bipolar loop I first resect the middle lobe. I move to the left lateral lobe and resected proximally and then distally from 12:00 to 6:00 with the extent being the bladder neck to verumontanum. Do the same on the right side. I then resect the redundant floor tissue. I then evacuated the prostate from the bladder with the Smove evacuator. Prostate truly bleeding. No remaining prostatic chips the bladder. I removed the resectoscope and coud the bladder with a good strong stream. An 18-Japanese coud-tip catheter introduced the bladder with clear urine return. The patient' s awake and returned recovery room good condition. Blood loss is approximately 50 mL. The patient be observed in the hospital postoperatively.
[2018-06-03] MEDS ORDERED: LACTATED RINGERS 1,000 ML IV ONE (09:58)
[2018-06-03] MEDS: DEXTROSE 5%-0.45% NACL 1,000 ML IV SCH ×3 (13:02→23:52)
[2018-06-03 15:17] VITALS: BMI 22.9
[2018-06-03 16:50] LABS: Glucose,Whole Blood 122 mg/dL (75-99)
[2018-06-03] MEDS: CARVEDILOL 3.125 MG TAB PO SCH (17:06)
[2018-06-03] MEDS: DOCUSATE 100 MG CAP PO SCH (20:04)
[2018-06-03] MEDS ORDERED: LACTULOSE 20 GM/30 ML CUP PO SCH (21:00)
[2018-06-03] MEDS ORDERED: ATORVASTATIN 80 MG TAB PO SCH (21:00)
[2018-06-04 00:32] VITALS: RESP 15
[2018-06-04] MEDS: LACTATED RINGERS 1,000 ML IV SCH (07:19)
[2018-06-04 07:47] VITALS: BP 125/76; PULSE 66; TEMP 98.4
[2018-06-04] MEDS: CARVEDILOL 3.125 MG TAB PO SCH (08:27)
[2018-06-04] MEDS: DOCUSATE 100 MG CAP PO SCH (08:29)
[2018-06-04] MEDS: DEXTROSE 5%-0.45% NACL 1,000 ML IV SCH (09:24)
--- NOTE | 2018-06-04 12:10 | P.DS ---
Providers Attending physician: Clay Bunn Primary care physician: [facility] Course: The patient has had urine retention. He is admitted yesterday for a TURP which he underwent without difficulty. Due to his age and health status he was kept in the hospital overnight. The urine is slightly tea-colored. He is having no problems. He'll be discharged home today with indwelling catheter. He resume all his home medications except for the aspirin which she'll hold and the t amsulosin which we'll discontinue. He'll resume his Levaquin. He will followed office Friday for catheter removal. Pathology report is pending. Condition is good. Patient Condition at Discharge: Good Plan - Discharge Summary Discharge Rx Participant: No New Discharge Prescriptions: No Action Multivitamins, Thera [Multivitamin (formulary)] 1 tab PO DAILY Lactulose [Constulose] 10 gm PO HS Carvedilol [Coreg] 3.125 mg PO BID Atorvastatin [Lipitor] 80 mg PO HS Aspirin 325 mg PO DAILY Acetaminophen Tab [Tylenol Tab] 325 mg PO DAILY PRN PRN Reason: Pain Finasteride [Proscar] 5 mg PO DAILY Bethanechol [Urecholine] 25 mg PO QID Tamsulosin HCl [Flomax] 0.4 mg PO DAILY Discharge Medication List Acetaminophen Tab [Tylenol Tab] 325 mg PO DAILY PRN 05/26/18 [History] Aspirin 325 mg PO DAILY 05/26/18 [History] Atorvastatin [Lipitor] 80 mg PO HS 05/26/18 [History] Bethanechol [Urecholine] 25 mg PO QID 05/26/18 [History] Carvedilol [Coreg] 3.125 mg PO BID 05/26/18 [History] Finasteride [Proscar] 5 mg PO DAILY 05/26/18 [History] Lactulose [Constulose] 10 gm PO HS 05/26/18 [History] Multivitamins, Thera [Multivitamin (formulary)] 1 tab PO DAILY 05/26/18 [History] Tamsulosin HCl [Flomax] 0.4 mg PO DAILY 05/26/18 [History] Follow up Appointment(s)/Referral(s): Clay Bunn MD [STAFF PHYSICIAN] - 06/08/18 Activity/Diet/Wound Care/Special Instructions: [facility]: #[phone], home with conley Discharge Disposition: HOME SELF-CARE
== END 2018-06-04 14:47 | disposition home or self-care (01) ==
LOC: OR 07:28 → 4SSUR 10:09 → OR 06-04 14:47
PROVIDERS: ATTEND Urology
DX: C61 Malignant neoplasm of prostate (principal); N40.1 Benign prostatic hyperplasia with lower urinary tract symptoms; R33.8 Other retention of urine; N13.8 Other obstructive and reflux uropathy; N32.89 Other specified disorders of bladder; I25.10 Atherosclerotic heart disease of native coronary artery without angina pectoris; I10 Essential (primary) hypertension; E78.5 Hyperlipidemia, unspecified; I69.954 Hemiplegia and hemiparesis following unspecified cerebrovascular disease affecting left non-dominant side; Z79.82 Long term (current) use of aspirin; Z79.899 Other long term (current) drug therapy
CPT/HCPCS: 97162; 97166; 88305; 52601; J2250; J1100; J2405; J2001; J3010; J1580; J0290; J1170; J2704

== ENCOUNTER 2018-06-25 11:00 | Emergency (ER) | payer MEDICARE ==
[2018-06-25] MEDS ORDERED: LIDOCAINE URO-JET JELLY 2% 5 ML KIT URETHRAL ONE (11:20)
[2018-06-25 11:40] VITALS: RESP 18
--- NOTE | 2018-06-25 11:53 | ED ---
Abdominal Pain HPI - General Chief Complaint: Abdominal Pain Stated Complaint: Trouble urinating Time Seen by Provider: 06/25/18 11:07 Source: patient, RN notes reviewed Mode of arrival: ambulatory Limitations: no limitations - History of Present Illness Initial Comments: 78-year-old male presents emergency Department chief complaint of urinary retention. Patient states she's had a Conley catheter in and out several times after prostate surgery. Patient states that it has been off for last 2 days. Patient states that he has had no urine output today states he feels like he has to go. Patient states his urologist advised him come emergency department for Conley catheter placement. is concerned that he may have an infection as it has been more cloudy but denies any fever, chills, confusion. - Related Data Home Medications Medication Instructions Recorded Confirmed Aspirin 325 mg PO DAILY 05/26/18 06/25/18 Atorvastatin [Lipitor] 80 mg PO HS 05/26/18 06/25/18 Carvedilol [Coreg] 3.125 mg PO BID 05/26/18 06/25/18 Finasteride [Proscar] 5 mg PO DAILY 05/26/18 06/25/18 Previous Rx's Medication Instructions Recorded Sulfamethox-Tmp 800-160Mg [Bactrim 1 each PO Q12HR #14 tab 06/25/18 Ds] Allergies Allergy/AdvReac Type Severity Reaction Status Date / Time No Known Allergies Allergy Verified 06/25/18 11:52 Review of Systems ROS Statement: Those systems with pertinent positive or pertinent negative responses have been documented in the HPI. ROS Other: All systems not noted in ROS Statement are negative. Past Medical History Past Medical History: Coronary Artery Disease (CAD), CVA/TIA, Hyperlipidemia, Prostate Disorder Additional Past Medical History / Comment(s): 03/12/18 experienced CVA- lt arm can't move has sling, lt leg starting to move awaiting brace for ankle/foot. states pt has [employer] device "my patient monitor" with chip in chest under skin and separate device to monitor heart, hx kidney stone. has conley catheter in place History of Any Multi-Drug Resistant Organisms: None Reported Past Surgical History: Hernia Repair Additional Past Surgical History / Comment(s): reattachment lt thumb Past Anesthesia/Blood Transfusion Reactions: No Reported Reaction Past Psychological History: No Psychological Hx Reported Smoking Status: Never smoker Past Alcohol Use History: Rare Past Drug Use History: None Reported - Past Family History Father Additional Family Medical History / Comment(s): bypass surgery Brother(s) Family Medical History: Cancer General Exam Limitations: no limitations General appearance: alert, in no apparent distress Neck exam: Present: normal inspection. Absent: tenderness, meningismus, lymphadenopathy Respiratory exam: Present: normal lung sounds bilaterally. Absent: respiratory distress, wheezes, rales, rhonchi, stridor Cardiovascular Exam: Present: regular rate (Tachycardic and triage though heart rate normal after Conley catheter placed.), normal rhythm, normal heart sounds. Absent: systolic murmur, diastolic murmur, rubs, gallop, clicks GI/Abdominal exam: Present: soft, tenderness (Mild suprapubic), normal bowel sounds. Absent: distended, guarding, rebound, rigid Back exam: Absent: CVA tenderness (R), CVA tenderness (L) Skin exam: Present: warm, dry, intact, normal color. Absent: rash Course Vital Signs 06/25/18 06/25/18 11:02 11:40 Temperature 98.7 F Pulse Rate 130 H 67 Respiratory 20 18 Rate Blood Pressure 159/96 O2 Sat by Pulse 97 95 Oximetry Medical Decision Making - Medical Decision Making 78-year-old male presents emergency department for urinary retention. Conley was placed, complete relief of symptoms. Patient's urinalysis reveals multiple WBC clumps. Patient was started on antibiotics pending urine culture. - Lab Data Lab Results 06/25/18 Range/Units 11:37 Urine Color Yellow Urine Appearance Turbid (Clear) Urine pH 6.5 (5.0-8.0) Ur Specific [place] 1.018 (1.001-1.035) Urine Protein 2+ H (Negative) Urine Glucose (UA) Negative (Negative) Urine Ketones Negative (Negative) Urine Blood Moderate H (Negative) Urine Nitrite Negative (Negative) Urine Bilirubin Negative (Negative) Urine Urobilinogen <2.0 (<2.0) mg/dL Ur Leukocyte Esterase Large H (Negative) Urine RBC 26 H (0-5) /hpf Urine WBC Clumps Moderate H (None) /hpf Urine Bacteria Moderate H (None) /hpf Urine Mucus Rare H (None) /hpf Disposition Clinical Impression: Urinary retention, UTI (urinary tract infection) Disposition: HOME SELF-CARE Condition: Stable Instructions (If sedation given, give patient instructions): Urinary Tract Infection in Men (ED) Additional Instructions: Please return to the Emergency Department if symptoms worsen or any other concerns. Prescriptions: Sulfamethox-Tmp 800-160Mg [Bactrim Ds] 1 each PO Q12HR #14 tab Is patient prescribed a controlled substance at d/c from ED?: No Referrals: Anupama Michelle MD [Primary Care Provider] - 1-2 days Time of Disposition: 12:28
[2018-06-25 12:19] LABS: Appearance,Urine Turbid (Clear); Bacteria,Urine Moderate /hpf; Bilirubin,Urine Negative (Negative); Blood,Urine Moderate (Negative); Color,Urine Yellow; Glucose,Urine (UA) Negative (Negative); Ketones,Urine Negative (Negative); Leukocyte Esterase,Urine Large (Negative); Mucus,Urine Rare /hpf; Nitrite,Urine Negative (Negative); PH, Urine 6.5 (5.0-8.0); Protein,Urine 2+ (Negative); RBC,Urine 26 /hpf (0-5); Specific Gravity,Urine 1.018 (1.001-1.035); Urobilinogen,Urine <2.0 mg/dL (<2.0)
[2018-06-25 13:02] VITALS: BP 115/77; PULSE 74; TEMP 98.4
== END 2018-06-25 13:01 | disposition home or self-care (01) ==
LOC: EC 11:00
DX: N39.0 Urinary tract infection, site not specified (principal); R33.9 Retention of urine, unspecified; R00.0 Tachycardia, unspecified; I25.10 Atherosclerotic heart disease of native coronary artery without angina pectoris; E78.5 Hyperlipidemia, unspecified; N42.9 Disorder of prostate, unspecified; Z86.73 Personal history of transient ischemic attack (TIA), and cerebral infarction without residual deficits; Z98.890 Other specified postprocedural states; Z79.82 Long term (current) use of aspirin; Z79.899 Other long term (current) drug therapy
CPT/HCPCS: 51702; 81001; 87086; 99284

== ENCOUNTER 2018-11-06 12:23 | Emergency (ER) | payer MEDICARE ==
[2018-11-06 12:30] VITALS: BP 124/80; PULSE 89; RESP 16; TEMP 97.4
--- NOTE | 2018-11-06 12:45 | ED ---
Fall HPI - General Chief Complaint: Fall Stated Complaint: Fall Time Seen by Provider: 11/06/18 12:31 Source: patient, family, RN notes reviewed Mode of arrival: ambulatory Limitations: physical limitation - History of Present Illness Initial Comments: This is a 78-year-old male presents emergency Department chief complaint of fall, left shoulder pain. Patient states she is coming down steps and states he tripped states he landed on his left shoulder. Patient went of left shoulder pain no head injury no loss conscious. Patient does have some pain he rates towards his neck but denies any midline neck pain or upper back pain. Patient has left-sided weakness from prior CVA in February. Patient denies any blood thinners at this time. Denies headache, , dizziness, new upper or lower extremity weakness. Patient has a current nausea vomiting diarrhea. Patient states that his left shoulder pain and severe but does not want any current pain meds. - Related Data Home Medications Medication Instructions Recorded Confirmed Aspirin 325 mg PO DAILY 05/26/18 06/25/18 Atorvastatin [Lipitor] 80 mg PO HS 05/26/18 06/25/18 Carvedilol [Coreg] 3.125 mg PO BID 05/26/18 06/25/18 Finasteride [Proscar] 5 mg PO DAILY 05/26/18 06/25/18 Previous Rx's Medication Instructions Recorded Sulfamethox-Tmp 800-160Mg [Bactrim 1 each PO Q12HR #14 tab 06/25/18 Ds] Allergies Allergy/AdvReac Type Severity Reaction Status Date / Time No Known Allergies Allergy Verified 11/06/18 12:30 Review of Systems ROS Statement: Those systems with pertinent positive or pertinent negative responses have been documented in the HPI. ROS Other: All systems not noted in ROS Statement are negative. Past Medical History Past Medical History: Coronary Artery Disease (CAD), CVA/TIA, Hyperlipidemia, Prostate Disorder Additional Past Medical History / Comment(s): 03/12/18 experienced CVA- lt arm can't move has sling, lt leg starting to move awaiting brace for ankle/foot. states pt has [employer] device "my patient monitor" with chip in chest under skin and separate device to monitor heart, hx kidney stone. has conley catheter in place History of Any Multi-Drug Resistant Organisms: None Reported Past Surgical History: Hernia Repair Additional Past Surgical History / Comment(s): reattachment lt thumb Past Anesthesia/Blood Transfusion Reactions: No Reported Reaction Past Psychological History: No Psychological Hx Reported Smoking Status: Never smoker Past Alcohol Use History: Rare Past Drug Use History: None Reported - Past Family History Father Additional Family Medical History / Comment(s): bypass surgery Brother(s) Family Medical History: Cancer General Exam Limitations: no limitations General appearance: alert, in no apparent distress Head exam: Present: atraumatic, normocephalic, normal inspection Eye exam: Present: normal appearance, PERRL, EOMI. Absent: scleral icterus, conjunctival injection, periorbital swelling ENT exam: Present: normal exam, normal oropharynx, mucous membranes moist Neck exam: Present: normal inspection, tenderness (Mild left trapezial tenderness), full ROM. Absent: meningismus, lymphadenopathy Respiratory exam: Present: normal lung sounds bilaterally. Absent: respiratory distress, wheezes, rales, rhonchi, stridor, chest wall tenderness Cardiovascular Exam: Present: regular rate, normal rhythm, normal heart sounds. Absent: systolic murmur, diastolic murmur, rubs, gallop, clicks Extremities exam: Present: other (Chronic weakness of the left upper and lower extremity though there is moderate tenderness to left proximal humeral region with moderate swelling no clavicle tenderness pulses equal bilaterally) Back exam: Present: full ROM. Absent: tenderness, paraspinal tenderness, vertebral tenderness Skin exam: Present: warm, dry, intact, normal color. Absent: rash Course Vital Signs 11/06/18 12:26 Temperature 97.4 F L Pulse Rate 89 Respiratory 16 Rate Blood Pressure 124/80 O2 Sat by Pulse 94 L Oximetry Medical Decision Making - Medical Decision Making 78-year-old male presented for fall, shoulder pain x-rays of cervical spine and full or obtained and shows some evidence of AC separation in low riding humerus and relationship to the glenoid fossa. There is no laureen dislocation. Patient will be placed in a single follow-up with orthopedics. Disposition Clinical Impression: Fall, AC separation Disposition: HOME SELF-CARE Condition: Stable Instructions (If sedation given, give patient instructions): Acromioclavicular Separation (ED) Additional Instructions: Please return to the Emergency Department if symptoms worsen or any other concerns. Is patient prescribed a controlled substance at d/c from ED?: No Referrals: Anupama Michelle MD [Primary Care Provider] - 1-2 days Santi Khan MD [STAFF PHYSICIAN] - 1-2 days Time of Disposition: 13:29
--- NOTE | 2018-11-06 13:09 | XR ---
EXAMINATION TYPE: XR shoulder complete LT DATE OF EXAM: 11/06/2018 CLINICAL HISTORY: Shoulder pain after recent fall injury today. TECHNIQUE: Three views of the left shoulder are attempted. COMPARISON: None. FINDINGS: Demineralization is present. No acute fracture is seen. There is superior positioning of th e distal clavicle relative to the acromion by 1.1 cm. Findings could reflect age indeterminate separa tion injury. There is slight inferior positioning of the humeral head relative to glenoid cavity coul d reflect age-indeterminate subluxation. No laureen anterior dislocation. Visualized ribs are intact. IMPRESSION: As above. Correlation with old outside x-ray would be beneficial
--- NOTE | 2018-11-06 13:17 | XR ---
EXAMINATION TYPE: XR cervical spine comp DATE OF EXAM: 11/06/2018 TECHNIQUE: Frontal, lateral, oblique, swimmers, and open mouth view of the cervical spine are obtaine d. HISTORY: Pain Neck Pain after fall injury today. COMPARISON: None FINDINGS: The cervical spine is visualized from C1 through the inferior C6 level, there is grade 1 r etrolisthesis C3 on C4 and grade 1 anterolisthesis C5 on C6. Suboptimal evaluation of C7 vertebra and C7-T1 disc space without dedicated swimmer's view. Osseous structures are demineralized. No acute fr acture is clearly seen. The pre-vertebral soft tissue appears within normal limits. The C1-C2 articu lation is suboptimally seen despite several attempts at open mouth views due to osseous overlap. Vert ebral body heights and disc space heights are well-maintained. Mild multilevel anterior spurring is s een. The oblique images show [id number] left-sided neural foraminal narrowing C3-C4 level due to marginal spurring. Overlying soft tissues are unremarkable. Slight dextroconvex scoliotic curvatur e centered mid thoracic spine is seen on frontal view. IMPRESSION: As above.
== END 2018-11-06 13:48 | disposition home or self-care (01) ==
LOC: EC 12:23
DX: S43.102A Unspecified dislocation of left acromioclavicular joint, initial encounter (principal); R11.2 Nausea with vomiting, unspecified; R19.7 Diarrhea, unspecified; I25.10 Atherosclerotic heart disease of native coronary artery without angina pectoris; E78.5 Hyperlipidemia, unspecified; N42.9 Disorder of prostate, unspecified; Z86.73 Personal history of transient ischemic attack (TIA), and cerebral infarction without residual deficits; Z79.82 Long term (current) use of aspirin; Z79.899 Other long term (current) drug therapy; W10.9XXA Fall (on) (from) unspecified stairs and steps, initial encounter; Y92.009 Unspecified place in unspecified non-institutional (private) residence as the place of occurrence of the external cause
CPT/HCPCS: 72050; 99283

== ENCOUNTER 2018-11-22 03:05 | Emergency (ER) | payer MEDICARE ==
[2018-11-22] MEDS ORDERED: ROCURONIUM BROMIDE 10 MG/ML 10 ML VIAL IV STA ×2 (03:22→06:25)
[2018-11-22] MEDS ORDERED: ETOMIDATE 2 MG/ML 10 ML VIAL IVP STA (03:22)
[2018-11-22 03:27] VITALS: TEMP 97.7
--- NOTE | 2018-11-22 03:30 | CT ---
EXAM: CT Head Without Intravenous Contrast CLINICAL HISTORY: ITS.REASON CT Reason: Neuro Deficits TECHNIQUE: Axial computed tomography images of the head/brain without intravenous contrast. CTDI is 49.1 mGy and DLP is 1322.4 mGy-cm. This CT exam was performed using one or more of the following dose reduction techniques: automated exposure control, adjustment of the mA and/or kV according to patient size, and/or use of iterative reconstruction technique. COMPARISON: No relevant prior studies available. FINDINGS: Limitations: This exam is markedly limited by poor patient positioning and patient motion. Brain: Posterior fossa hemorrhage cannot be excluded on the basis of this exam. Large chronic appearing right MCA distribution infarction. Midline shift: No midline shift or herniation. Ventricles: Unremarkable. No ventriculomegaly. Bones/joints: No acute fracture. Soft tissues: Unremarkable. Vasculature: Calcification of the distal internal carotid arteries. Sinuses: Unremarkable as visualized. Mastoid air cells: Unremarkable as visualized. IMPRESSION: 1. This exam is markedly limited by poor patient positioning and patient motion. 2. Posterior fossa hemorrhage cannot be excluded on the basis of this exam. This exam is therefore considered nondiagnostic for stroke protocol purposes. 3. Large chronic appearing right MCA distribution infarction.
[2018-11-22 03:36] LABS: Glucose,Whole Blood 142 mg/dL (75-99)
[2018-11-22 03:55] LABS: Basophils % (A) 0 %; Eosinophils # (A) 0.3 k/uL (0-0.7); Eosinophils % (A) 3 %; HCT 41.2 % (39.0-53.0); HGB 13.8 gm/dL (13.0-17.5); Lymphocytes % (A) 30 %; MCH 29.3 pg (25.0-35.0); MCHC 33.6 g/dL (31.0-37.0); MCV 87.1 fL (80.0-100.0); Monocytes # (A) 0.4 k/uL (0-1.0); Monocytes % (A) 4 %; Neutrophils % (A) 60 %; Platelet Count 276 k/uL (150-450); RBC 4.73 m/uL (4.30-5.90); RDW 13.3 % (11.5-15.5)
[2018-11-22 04:03] LABS: ALT 67 U/L (21-72); AST 57 U/L (17-59); African American GFR (CKD) >90 (>60 ml/min/1.73 sqM); Albumin 3.9 g/dL (3.5-5.0); Alkaline Phosphatase 188 U/L (38-126); Anion Gap 12 mmol/L; Blood Urea Nitrogen 27 mg/dL (9-20); Calcium 9.7 mg/dL (8.4-10.2); Carbon Dioxide 21 mmol/L (22-30); Chloride 107 mmol/L (98-107); Glucose 146 mg/dL (74-99); Potassium 3.7 mmol/L (3.5-5.1); Sodium 140 mmol/L (137-145); Total Bilirubin 1.7 mg/dL (0.2-1.3); Total Protein 6.8 g/dL (6.3-8.2)
[2018-11-22] MEDS ORDERED: PROPOFOL 1,000 MG in EMPTY BAG 1 BAG IV ONE (04:11)
--- NOTE | 2018-11-22 04:14 | XR ---
EXAM: XR Chest, 1 View CLINICAL HISTORY: ITS.REASON XR Reason: altered mental status TECHNIQUE: Frontal view of the chest. COMPARISON: No relevant prior studies available. FINDINGS: Lungs: Unremarkable. The lungs are clear. Pleural space: Unremarkable. No pneumothorax. Heart: Unremarkable. No cardiomegaly. Mediastinum: Unremarkable. Bones/joints: Unremarkable. Vasculature: Calcification of the aortic arch, which appears mildly ectatic. Tubes, lines and devices: Endotracheal tube tip terminates approximately 1.3 cm above the juan and is directed towards the right. Loop recorder. IMPRESSION: Endotracheal tube tip terminates approximately 1.3 cm above the juan and is directed towards the right. Recommend pulling back. <MYCVCSECTION> [employer] 11/22/18 04:18 Verify Receipt Verified receipt with DANITZA Polo; Given to Dr. Abarca on 11/22 04:18 (-04:00)
--- NOTE | 2018-11-22 04:15 | ED ---
Neuro HPI - General Chief Complaint: Neuro Symptoms/Deficit Stated Complaint: Poss CVA Time Seen by Provider: 11/22/18 03:06 Source: EMS Mode of arrival: EMS - History of Present Illness Is the patient presenting with stroke symptoms?: Yes Last Known Well Date: 11/21/18 Last Known Well Time: 21:30 Initial Comments: Patient is a 78-year-old male with past medical history significant for a right MCA stroke in February 2018 resulting left-sided deficits. Per the the patient is usually awake alert oriented and conversive. He is usually alert and oriented 4. He is currently being treated for a left clavicular fracture and has his arm in a sling. reports he was his usual self at 9:30 PM last night she woke this morning to his snoring respirations and was unable to wake him. EMS was contacted. They found the patient to have snoring respiration eyes deviated to the left and minimally responsive. - Related Data Home Medications: Home Medications Medication Instructions Recorded Confirmed Aspirin 325 mg PO DAILY 05/26/18 06/25/18 Atorvastatin [Lipitor] 80 mg PO HS 05/26/18 06/25/18 Carvedilol [Coreg] 3.125 mg PO BID 05/26/18 06/25/18 Finasteride [Proscar] 5 mg PO DAILY 05/26/18 06/25/18 Previous Rx's Medication Instructions Recorded Sulfamethox-Tmp 800-160Mg [Bactrim 1 each PO Q12HR #14 tab 06/25/18 Ds] Allergies/Adverse Reactions: Allergies Allergy/AdvReac Type Severity Reaction Status Date / Time No Known Allergies Allergy Verified 11/06/18 12:30 Review of Systems ROS Statement: Those systems with pertinent positive or pertinent negative responses have been documented in the HPI. ROS Other: All systems not noted in ROS Statement are negative. General Exam - General Exam Comments Initial Comments: Physical Exam GENERAL: Elderly male, awake but non-responsive, Snoring respirations HENT: Normocephalic, Atraumatic. EYES: Eyes are deviated to the left Pulse 3 mm and reactive PULMONARY: Snoring respirations CARDIOVASCULAR: Irregular tachycardic with warm and well perfused extremities ABDOMEN: Soft and nontender with normal bowel sounds. SKIN: Significant bruising the left upper shoulder area consistent with recent clavicular fracture : , External genitalia NEUROLOGIC: No Verbal response to stimuli Gag reflex intact Withdraws to pain MUSCULOSKELETAL: Left upper extremity in sling, well-healing bruising around the left shoulder consistent with clavicular fracture PSYCHIATRIC: Unable to assess Stroke MDM - Lab Data Result diagrams: 11/22/18 03:44 11/22/18 03:44 Lab Results 11/22/18 11/22/18 11/22/18 Range/Units 03:15 03:44 03:44 WBC 10.0 (3.8-10.6) k/uL RBC 4.73 (4.30-5.90) m/uL Hgb 13.8 (13.0-17.5) gm/dL Hct 41.2 (39.0-53.0) % MCV 87.1 (80.0-100.0) fL MCH 29.3 (25.0-35.0) pg MCHC 33.6 (31.0-37.0) g/dL RDW 13.3 (11.5-15.5) % Plt Count 276 (150-450) k/uL Neutrophils % 60 % Lymphocytes % 30 % Monocytes % 4 % Eosinophils % 3 % Basophils % 0 % Neutrophils # 6.0 (1.3-7.7) k/uL Lymphocytes # 3.0 (1.0-4.8) k/uL Monocytes # 0.4 (0-1.0) k/uL Eosinophils # 0.3 (0-0.7) k/uL Basophils # 0.0 (0-0.2) k/uL Sodium 140 (137-145) mmol/L Potassium 3.7 (3.5-5.1) mmol/L Chloride 107 (98-107) mmol/L Carbon Dioxide 21 L (22-30) mmol/L Anion Gap 12 mmol/L BUN 27 H (9-20) mg/dL Creatinine 0.66 (0.66-1.25) mg/dL Est GFR (CKD-EPI)AfAm >90 (>60 ml/min/1.73 sqM) Est GFR (CKD-EPI)NonAf >90 (>60 ml/min/1.73 sqM) Glucose 146 H (74-99) mg/dL POC Glucose (mg/dL) 142 H (75-99) mg/dL POC Glu [employer] Jhoana Anderson Calcium 9.7 (8.4-10.2) mg/dL Total Bilirubin 1.7 H (0.2-1.3) mg/dL AST 57 (17-59) U/L ALT 67 (21-72) U/L Alkaline Phosphatase 188 H (38-126) U/L Troponin I (0.000-0.034) ng/mL Total Protein 6.8 (6.3-8.2) g/dL Albumin 3.9 (3.5-5.0) g/dL 11/22/18 Range/Units 03:44 WBC (3.8-10.6) k/uL RBC (4.30-5.90) m/uL Hgb (13.0-17.5) gm/dL Hct (39.0-53.0) % MCV (80.0-100.0) fL MCH (25.0-35.0) pg MCHC (31.0-37.0) g/dL RDW (11.5-15.5) % Plt Count (150-450) k/uL Neutrophils % % Lymphocytes % % Monocytes % % Eosinophils % % Basophils % % Neutrophils # (1.3-7.7) k/uL Lymphocytes # (1.0-4.8) k/uL Monocytes # (0-1.0) k/uL Eosinophils # (0-0.7) k/uL Basophils # (0-0.2) k/uL Sodium (137-145) mmol/L Potassium (3.5-5.1) mmol/L Chloride (98-107) mmol/L Carbon Dioxide (22-30) mmol/L Anion Gap mmol/L BUN (9-20) mg/dL Creatinine (0.66-1.25) mg/dL Est GFR (CKD-EPI)AfAm (>60 ml/min/1.73 sqM) Est GFR (CKD-EPI)NonAf (>60 ml/min/1.73 sqM) Glucose (74-99) mg/dL POC Glucose (mg/dL) (75-99) mg/dL POC Glu [employer] Calcium (8.4-10.2) mg/dL Total Bilirubin (0.2-1.3) mg/dL AST (17-59) U/L ALT (21-72) U/L Alkaline Phosphatase (38-126) U/L Troponin I <0.012 (0.000-0.034) ng/mL Total Protein (6.3-8.2) g/dL Albumin (3.5-5.0) g/dL - NIH Stroke Scale 1a. Level of Consciousness: (3) responds reflex/autonomic 1b. LOC Questions: (2) answers no questions correctly 1c. LOC Commands: (2) performs no tasks correctly 2. Best Gaze: (2) forced deviation 5a. Motor Arm Left: (1) drift 5b. Motor Arm Right: (2) some gravity effort 6a. Motor Leg Left: (1) drift 6b. Motor Leg Right: (2) some gravity effort 8. Sensory: (0) normal 9. Best Language: (un) mute/global aphasia 10. Dysarthria: (un) intubated/barrier 11. Extinction/Inattention: (2) profound inattention NIH Score total: 17 - Thrombolytic Inclusion/Exclusion Thrombolytic Exclusion Criteria: Symptom Onset > 3 Hours Thrombolytic Inclusion Criteria: Negative CT Scan for ICH, Age 18 or Older, Glucose of 50-400mg/dl Thrombolytic Contraindications: Systolic Pressure > 185, Diastolic Pressure > 110 - Medical Decision Making Patient was seen and evaluated immediately upon arrival to the emergency department, patient is noted to have severe signs of a stroke with decreased mental status fixed gaze deviation next and patient was taken from EMS stretcher to CT where a computed tomography scan was obtained he was then returned to return to the [facility] where decision was made to intubate for airway protection. The patient was intubated with a 70 tube, no palpitations with intubation. There is good oxygenation. Patient was found to be somewhat tachycardic but never had hypoxia. Patient remained mildly hypertensive. Sedation medications were ordered. Next and head CT resulted with no signs of intracranial hemorrhage patient care was discussed with interventional neurologist Dr. Prabhakar who recommended CT angiography of the brain and neck area After intubation the patient was returned to the CT suite where CT angiography was obtained, patient care was again discussed with Dr. Prabhakar who sees no obvious occlusions, no indication for thrombolytics. Recommends Keppra and transfer to [facility] for further evaluation by neurology. Patient care was discussed with ER physician at [facility] who agrees with plan for transfer, Dr Bonner accepts transfer. Transfer patient became somewhat agitated was noted to be moving the right extremity, he became tachycardic, he was bolused with propofol and Versed. He was then noted to become somewhat hypotensive. Propofol was held blood pressure improved. Patient was transferred via EMS to [facility]. - Radiology Data Radiology results: report reviewed, image reviewed - EKG Data -: EKG Interpreted by Me EKG shows normal: sinus rhythm Rate: tachycardia Past Medical History Past Medical History: Coronary Artery Disease (CAD), CVA/TIA, Hyperlipidemia, Prostate Disorder Additional Past Medical History / Comment(s): 03/12/18 experienced CVA- lt arm can't move has sling, lt leg starting to move awaiting brace for ankle/foot. states pt has [employer] device "my patient monitor" with chip in chest under skin and separate device to monitor heart, hx kidney stone. has conley catheter in place History of Any Multi-Drug Resistant Organisms: None Reported Past Surgical History: Hernia Repair Additional Past Surgical History / Comment(s): reattachment lt thumb Past Anesthesia/Blood Transfusion Reactions: No Reported Reaction Past Psychological History: No Psychological Hx Reported Smoking Status: Never smoker Past Alcohol Use History: Rare Past Drug Use History: None Reported - Past Family History Father Additional Family Medical History / Comment(s): bypass surgery Brother(s) Family Medical History: Cancer Course Vital Signs 11/22/18 11/22/18 11/22/18 03:14 03:15 03:30 Temperature 97.7 F Pulse Rate 101 H 88 82 Respiratory 16 18 18 Rate Blood Pressure 193/147 181/118 142/103 O2 Sat by Pulse 94 L 95 98 Oximetry 11/22/18 11/22/18 11/22/18 03:45 04:00 04:15 Temperature Pulse Rate 80 78 76 Respiratory 18 18 18 Rate Blood Pressure 142/103 179/123 149/103 O2 Sat by Pulse 98 98 98 Oximetry 11/22/18 11/22/18 11/22/18 04:16 04:30 04:45 Temperature Pulse Rate 111 H 112 H 108 H Respiratory 8 L 11 L 16 Rate Blood Pressure 178/136 178/136 152/118 O2 Sat by Pulse 99 99 Oximetry 11/22/18 11/22/18 11/22/18 05:00 05:15 05:30 Temperature Pulse Rate 85 Respiratory 14 Rate Blood Pressure 85/61 102/67 O2 Sat by Pulse Oximetry Critical Care Time Critical Care Time: Yes Total Critical Care Time: 45 Critical Care Time: Critical Care Time Critical care time was exclusive of separately billable procedures and treating other patients and teaching time. Critical care was necessary to treat or prevent imminent or life-threatening deterioration. Given the critical condition in which the patient arrived, the patient was immediately assessed by myself and the nurse, and cardiac monitoring initiated due to the potential for rapid decompensation of the patient's clinical condition. During the course of the patients stay, I spent a considerable amount of time at the bedside performing serial re-evaluations of the patient's hemodynamic and clinical status because of the recognized potential threat to life or limb in this condition. I then had a chance to review not only all of the available current laboratory and radiographic studies obtained today, but I also reviewed old records available to me at the time. Additionally, any ancillary information available including [facility] records were reviewed. Sequential vital signs were obtained. Disposition Clinical Impression: Cerebrovascular accident Disposition: OTHER INSTITUTION NOT DEFINED Condition: Critical Referrals: Anupama Michelle MD [Primary Care Provider] - 1-2 days - Out of Hospital Transfer - Req. Specs Out of Hospital Transfer - Requested Specifics: Other Emergency Center ([facility])
[2018-11-22] MEDS ORDERED: levETIRAcetam IV 1,000 MG in SALINE 1 100ML.BAG IVPB ONE (04:30)
[2018-11-22] MEDS ORDERED: MIDAZOLAM 1 MG/ML 5 ML VIAL IV STA (04:50)
--- NOTE | 2018-11-22 04:59 | CT ---
EXAM: CT Angiography Head With Intravenous Contrast CLINICAL HISTORY: ITS.REASON CT Reason: Neuro Deficits TECHNIQUE: Axial computed tomographic angiography images of the head with intravenous contrast using CT angiography protocol. CTDI is 38 mGy and DLP is 467 mGy-cm. This CT exam was performed using one or more of the following dose reduction techniques: automated exposure control, adjustment of the mA and/or kV according to patient size, and/or use of iterative reconstruction technique. 3D and MIP reconstructed images were created and reviewed. COMPARISON: No relevant prior studies available. FINDINGS: Right internal carotid artery: No acute findings. No occlusion or significant stenosis. No aneurysm. Right anterior cerebral artery: Unremarkable. No occlusion or significant stenosis. No aneurysm. Right middle cerebral artery: Unremarkable. No occlusion or significant stenosis. No aneurysm. Right posterior cerebral artery: Unremarkable. No occlusion or significant stenosis. No aneurysm. Right vertebral artery: Unremarkable as visualized. Left internal carotid artery: No acute findings. Intracranial segment is patent with no significant stenosis. No aneurysm. Left anterior cerebral artery: Unremarkable. No occlusion or significant stenosis. No aneurysm. Left middle cerebral artery: Unremarkable. No occlusion or significant stenosis. No aneurysm. Left posterior cerebral artery: Unremarkable. No occlusion or significant stenosis. No aneurysm. Left vertebral artery: Unremarkable as visualized. 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 No occlusion or significant stenosis. No aneurysm. Brain: Intracranial arterial assessment is limited by nondiagnostic MIP reformats. There is however no evidence of significant steno- occlusive lesion based on the source images. IMPRESSION: 1. 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 2. Intracranial arterial assessment is limited by nondiagnostic MIP reformats. There is however no evidence of significant steno-occlusive lesion based on the source images. EXAM: CT Angiography Neck With Intravenous Contrast CLINICAL HISTORY: ITS.REASON CT Reason: Neuro Deficits TECHNIQUE: Axial computed tomographic angiography images of the neck with intravenous contrast using CT angiography protocol. CTDI is 38 mGy and DLP is 467 mGy-cm. This CT exam was performed using one or more of the following dose reduction techniques: automated exposure control, adjustment of the mA and/or kV according to patient size, and/or use of iterative reconstruction technique. 3D and MIP reconstructed images were created and reviewed. COMPARISON: No relevant prior studies available. FINDINGS: VASCULATURE: Right common carotid artery: Unremarkable. No significant stenosis. No dissection or occlusion. Right internal carotid artery: Mild diffuse narrowing of the cervical right internal carotid artery. Right external carotid artery: Unremarkable. No occlusion. Right vertebral artery: Unremarkable. No significant stenosis. No dissection or occlusion. Left common carotid artery: Unremarkable. No significant stenosis. No dissection or occlusion. Left internal carotid artery: Calcification of the left carotid bulb without significant stenosis. No dissection or occlusion. Left external carotid artery: Unremarkable. No occlusion. Left vertebral artery: Unremarkable. No significant stenosis. No dissection or occlusion. NECK: Bones/joints: No acute fracture. No dislocation. Soft tissues: Unremarkable as visualized. No mass. Tubes, lines and devices: The patient is intubated. CAROTID STENOSIS REFERENCE USING NASCET CRITERIA: % ICA stenosis = (1 - narrowest ICA diameter/diameter of distal cervical ICA) x 100. Mild - <50% stenosis. Moderate - 50-69% stenosis. Severe - 70-94% stenosis. Near occlusion - 95-99% stenosis. Occluded - 100% stenosis. IMPRESSION: 1. Mild diffuse narrowing of the cervical right internal carotid artery. This is nonspecific but may be related to the right MCA infarct. 2. No significant steno-occlusive lesion in the neck.
[2018-11-22 06:19] VITALS: BP 102/67; PULSE 85; RESP 14
== END 2018-11-22 05:16 | disposition other institution (70) ==
LOC: EC 03:05
DX: I63.9 Cerebral infarction, unspecified (principal); R29.717 NIHSS score 17; R00.0 Tachycardia, unspecified; S40.012A Contusion of left shoulder, initial encounter; I25.10 Atherosclerotic heart disease of native coronary artery without angina pectoris; E78.5 Hyperlipidemia, unspecified; N42.9 Disorder of prostate, unspecified; Z79.82 Long term (current) use of aspirin; Z79.899 Other long term (current) drug therapy
CPT/HCPCS: 99291; 31500; 96365; 96366; 36415; 36600; 93005; 80053; 84484; 85025; 71045; 70496; 70450; 70498; J2250; J2704; J1953; Q9967; 94002